=== PATIENT | female | born 1940 | race Caucasian/White ===

== ENCOUNTER 2016-12-02 09:00 | Day surgery (SDC) | payer OTHER ==
[2016-12-02] VITALS (7 sets, daily range): BP systolic 133–165; BP diastolic 84–96; PULSE 69–75; RESP 18–20; TEMP 97.8–98.6; O2SAT 92–95
[~2016-12-02] VITALS: Ht 165.1 cm; Wt 57.3 kg
[~2016-12-02 09:00] MED LIST: ACET325S8 PO; AMLO5TAB22 PO; ANAS1 PO; CALC500T19 PO; ENAL2.5 PO; LANTUSP SQ; ONDA1TAB16 PO; SODIUM CHLOR 0.9% 1000 ML IV SCH; SYNT100T PO; WALKMIS6 EXT
[2016-12-02] MEDS ORDERED: LIDOCAINE HCL 1% 20 ML VIAL ONE (09:24)
[2016-12-02] MEDS ORDERED: GRAN1TAB PO (09:26)
[2016-12-02] MEDS ORDERED: CURCPOW (09:26)
[2016-12-02] MEDS ORDERED: LEVO25TA4 PO (09:26)
[2016-12-02] MEDS ORDERED: AROM25TA (09:26)
[2016-12-02] MEDS ORDERED: CALC0.25 PO (09:26)
[2016-12-02] MEDS ORDERED: XELO500T PO (09:26)
[2016-12-02] MEDS ORDERED: AFIN10TA2 (09:26)
[2016-12-02] MEDS ORDERED: LANTUS2P SQ (09:26)
[2016-12-02] MEDS ORDERED: AMLO5TAB2 PO (09:26)
[2016-12-02] MEDS ORDERED: ENAL20TA PO (09:26)
[2016-12-02] MEDS ORDERED: DENO60P SQ (09:26)
[2016-12-02] MEDS ORDERED: SODIUM CHLORIDE 2 ML FLUSH PRN IV FLUSH (09:30)
[2016-12-02] MEDS ORDERED: ceFAZolin 2 GM PREMIX 50 ML IV SCH (09:30)
[2016-12-02 09:51] LABS: APTT (PATIENT) 25.7 SEC (24.3-30.1); PROTHROMBIN TIME - PATIENT 11.2 SEC (9.8-11.6)
[2016-12-02] MEDS ORDERED: MIDAZOLAM HCL 5 MG/5 ML VIAL ONE (13:16)
--- NOTE | 2016-12-02 14:24 | PD.RAD ---
Post CT Procedure Prog Note Pre Procedure Diagnosis: (1) Liver metastases Post Procedure Diagnosis: (1) Liver metastases Procedure Date: Dec 02, 2016 Supervising Radiologist: Jhony Talamantes Anesthesia: Conscious Sedation Plan of Activity Patient to Unit: [facility] Patient Condition: Good Additional Comments: bracket ant-post fiducial markers of mass in post right lobe of liver See PACS Report for procedural detail/treatment Jhony Talamantes MD Dec 02, 2016 14:24
[2016-12-02] MEDS ORDERED: HYDROmorphone HCL 2 MG TAB PO PRN (16:00)
[2016-12-02] MEDS ORDERED: SODIUM CHLORIDE 2 ML FLUSH BID IV FLUSH SCH (21:00)
--- NOTE | 2016-12-03 07:56 | RADRPT ---
EXAM DATE/TIME: 12/02/2016 13:49 [place] COMPARISON: No previous studies available for comparison. INDICATIONS : Metastatic liver disease SEDATION TIME: 45 minutes MEDICATION(S): 1.) 2.5 mg midazolam (Versed) IV 2.) 125 mcg fentanyl (Sublimaze) IV Prophylactic antibiotics were administered with appropriate pre-procedure timing. DEVICE(S): 1.) 20 gauge pointcore MEDICAL HISTORY : Diabetes mellitus type 2. Hypertension. Carcinoma, breast. SURGICAL HISTORY : Hysterectomy. ENCOUNTER: Initial ACUITY: 1 day PAIN SCORE: 0/10 LOCATION: Right upper quadrant PROCEDURE: CT guided fiducial marker placement PROCEDURE : The risks, benefits and alternatives to the procedure were explained and verbal and written consent w as obtained. Using automated exposure control and adjustment of the mA and/or kV according to patien t size, radiation dose was kept as low as reasonably achievable to obtain optimal diagnostic quality images. The site was prepped in sterile fashion. Full sterile technique was used, including cap, ma sk, sterile gloves and gown and a large sterile sheet. Hand hygiene and 2% chlorhexidine and/or beta dine/alcohol prep was utilized per protocol for cutaneous antisepsis. The skin and subcutaneous tiss ues were infiltrated with local anesthetic solution. DICOM format image data is available electronic ally for review and comparison. CT examination of the liver was performed. This demonstrates interval progression of the segment 6 ma ss which now measures approximately 5.0 x 3.1 cm with a satellite mass just medial to the inferior ma rgin measuring 1.3 x 1.6 cm. The dominant mass was next targeted. Two 20 gauge fiducial markers were then deployed along the inferior margin of the mass markings the posterior and anterior margins. Thes e fiducial markers were intentionally deployed at the level of the satellite mass to help with additi onal localization of this mass as indicated. Post procedure CT examination demonstrated no significan t pneumothorax or hematoma. CONCLUSION: 1. Apparent interval progression of disease with enlarging segment 6 mass now measuring 5.0 x 3.1 cm with an adjacent satellite mass medial to the inferior margin of the mass measuring 1.3 x 1.6 cm. 2. Two fiducial markers were deployed marked in the anterior and posterior margins of the segment 6 m ass at the same level as the satellite mass to help with additional localization of the satelite mass as indicated. Jhony Talamantes MD on December 03, 2016 at 7:41 Board Certified Radiologist. This report was verified electronically.
== END 2016-12-02 18:10 | disposition home or self-care (01) ==
LOC: HRAD 09:00 → HRIP 09:04 → HRAD 18:10
PROVIDERS: ATTEND Specialist
DX: C78.7 Secondary malignant neoplasm of liver and intrahepatic bile duct (principal); C50.912 Malignant neoplasm of unspecified site of left female breast; E11.9 Type 2 diabetes mellitus without complications; E03.9 Hypothyroidism, unspecified; I10 Essential (primary) hypertension; K57.92 Diverticulitis of intestine, part unspecified, without perforation or abscess without bleeding
CPT/HCPCS: 49411; 77012; 85610; 85730; 99152; 99153; J0690; J2250; J3010